=== PATIENT | female | born 1965 | race Hispanic/Latino ===

== ENCOUNTER 2021-11-25 05:30 | Observation (INO) | payer BC ==
[2021-11-16 11:21] LABS: BASOPHILS % (AUTO) 0.7 % (0.0-5.0); EOSINOPHILS % (AUTO) 3.4 % (0.0-8.0); HEMATOCRIT 45.3 % (36-48); LYMPHOCYTES % (AUTO) 31.1 % (21.0-51.0); MEAN CORPUSCULAR HEMOGLOBIN 30.9 pg (27.0-33.0); MEAN CORPUSCULAR HGB CONC 32.9 g/dL (32.0-36.0); MONOCYTES % (AUTO) 7.1 % (3.0-13.0); NEUTROPHILS % (AUTO) 57.4 % (40.0-77.0); PLATELET COUNT (AUTO) 295 K/uL (130-400); RED BLOOD CELL COUNT(AUTO) 4.82 MIL/uL (4.00-5.50); RED CELL DISTRIBUTION WIDTH 11.9 % (11.0-15.5)
[2021-11-16 11:29] LABS: POTASSIUM 4.4 mmol/L (3.5-5.1)
[2021-11-24] MEDS: CEFAZOLIN SODIUM 3 GM VIAL IV SCH (06:50)
[2021-11-24 11:45] VITALS: BP 149/88
[2021-11-25] VITALS (22 sets, daily range): BP systolic 99–141; BP diastolic 51–79
[~2021-11-25] VITALS: Ht 165.1 cm; Wt 115.2 kg
[~2021-11-25 05:30] MED LIST: ATOR20TA65 PO; DULA1.5P SQ; METO50TA18 PO; RAMI2.5C55 PO; [UNRECOGNIZED DRUG - OTHER] PO
[2021-11-25] MEDS ORDERED: CEFAZOLIN SODIUM 1 GM VIAL ONE ×3 (06:33→17:26)
[2021-11-25] MEDS ORDERED: 0.9%NACL 1000ML 1,000 ML IV ONE (06:33)
[2021-11-25] MEDS ORDERED: BUPIVACAINE/EPI/PF 0.25% 30ML VIAL IJ ONE (06:48)
[2021-11-25] MEDS ORDERED: THROMBIN-JMI 20000 UNIT KIT TP ONE (06:49)
[2021-11-25] MEDS ORDERED: MORPHINE PF 100MG/10ML AMP IV ONE (06:49)
[2021-11-25] MEDS ORDERED: PROPOFOL 10 MG/ML 20ML VIAL IV ONE (07:22)
[2021-11-25] MEDS ORDERED: MIDAZOLAM HCL 1 MG/ML 2ML VIAL ONE (07:22)
[2021-11-25] MEDS ORDERED: FENTANYL CITRATE PF 50 MCG/1 ML 2ML VIAL ONE (07:22)
[2021-11-25] MEDS ORDERED: LIDOCAINE PF 100MG/5ML (2%) SYRINGE 5ML ONE (07:22)
[2021-11-25] MEDS ORDERED: SUCCINYLCHOLINE CHLORIDE 20 MG/ML 10 ML VIAL ONE (07:22)
[2021-11-25] MEDS ORDERED: DEXAMETHASONE SOD PHOSPHATE 10MG/ML 1ML VIAL ONE (07:23)
[2021-11-25] MEDS ORDERED: ROCURONIUM 10MG/1ML SYR 10 MG/ML ML ONE (07:23)
[2021-11-25] MEDS ORDERED: EPHEDRINE SULFATE 50 MG/ML AMPULE ONE (07:44)
[2021-11-25] MEDS ORDERED: ARTIFICIAL TEARS 3.5 GM OINTMENT ONE (08:00)
[2021-11-25] MEDS: CEFAZOLIN SODIUM 3 GM VIAL IV SCH (08:00)
[2021-11-25] MEDS ORDERED: PHENYLEPHRINE HCL 10 MG/ML 1ML VIAL IV ONE (08:08)
[2021-11-25] MEDS ORDERED: GLYCOPYRROLATE 1 MG/5 ML SYRINGE ONE (10:04)
[2021-11-25] MEDS ORDERED: NEOSTIGMINE 5MG/5ML SYR IV ONE (10:04)
[2021-11-25] MEDS ORDERED: ONDANSETRON 4MG INJ ONE (10:04)
[2021-11-25] MEDS ORDERED: MORPHINE 2 MG SYG IVP PRN (10:30)
[2021-11-25] MEDS ORDERED: 0.9%NACL 10ML VIAL IVP PRN (10:30)
[2021-11-25] MEDS ORDERED: HYDROCODONE/ACETAMINOPHEN 5/325 MG TAB PO PRN (10:30)
[2021-11-25] MEDS ORDERED: PROMETHAZINE HCL 25 MG/ML 1ML AMPULE IM PRN (10:30)
[2021-11-25] MEDS ORDERED: CEFAZOLIN SODIUM 100 GM IV SCH (10:30)
[2021-11-25] MEDS: DEXAMETHASONE SOD PHOSPHATE 4 MG/ML 1ML VIAL IVP SCH ×3 (10:30→21:44)
[2021-11-25] MEDS ORDERED: MEPERIDINE-PF 25 MG/ML SYG ONE ×2 (10:51→11:16)
[2021-11-25] MEDS ORDERED: CEFAZOLIN SODIUM 3 GM VIAL IV SCH (11:00)
[2021-11-25] MEDS: LACTATED RINGERS 1000ML 1,000 ML IV SCH ×2 (17:17→23:50)
[2021-11-26 00:20] VITALS: BP 106/65
[2021-11-26] MEDS: DEXAMETHASONE SOD PHOSPHATE 4 MG/ML 1ML VIAL IVP SCH (04:13)
[2021-11-26 04:28] VITALS: BP 113/63
[2021-11-26 08:00] VITALS: BP 132/68
[2021-11-26] MEDS ORDERED: ATORVASTATIN 20 MG TABLET PO SCH (09:00)
[2021-11-26] MEDS ORDERED: [UNRECOGNIZED DRUG - OTHER] PO SCH (09:00)
[2021-11-26] MEDS ORDERED: METOPROLOL TARTRATE 50 MG TAB PO SCH (09:00)
[2021-11-26] MEDS ORDERED: LISINOPRIL 10 MG TABLET PO SCH (09:00)
[2021-12-02] MEDS ORDERED: **HM**TRULICITY 1.5MG SQ SCH (09:00)
== END 2021-11-26 10:48 | disposition home or self-care (01) ==
LOC: DAHIP 05:30 → 4AH 11:27
PROVIDERS: ADMIT Neurological Surgery; ATTEND Neurological Surgery
DX: M48.061 Spinal stenosis, lumbar region without neurogenic claudication (principal); Z20.822 Contact with and (suspected) exposure to COVID-19; M51.16 Intervertebral disc disorders with radiculopathy, lumbar region; I10 Essential (primary) hypertension; E11.9 Type 2 diabetes mellitus without complications; E66.9 Obesity, unspecified; Z79.899 Other long term (current) drug therapy
CPT/HCPCS: 36415; 63030; 63047; 71045; 72020; 80051; 82948 ×2; 85025; 87635; 93005; 96374; 96376 ×2; A4215; A4216; A4221; A4222; A4223 ×2; A4344; A4510; A4600; A4649 ×3; A4663; A6260; G0378 ×23; G0379; J0330; J0690 ×3; J1100 ×5; J2001; J2175 ×2; J2250; J2274; J2370; J2405; J2704; J2710; J3010; J3490 ×3; J7030 ×2; J7120 ×3

== ENCOUNTER 2022-04-20 05:30 | Observation (INO) | payer BC ==
[2022-04-19 11:54] LABS: BASOPHILS % (AUTO) 0.4 % (0.0-5.0); EOSINOPHILS % (AUTO) 4.5 % (0.0-8.0); HEMATOCRIT 45.4 % (36-48); LYMPHOCYTES % (AUTO) 18.6 % (21.0-51.0); MEAN CORPUSCULAR HEMOGLOBIN 30.3 pg (27.0-33.0); MEAN CORPUSCULAR HGB CONC 32.8 g/dL (32.0-36.0); MEAN CORPUSCULAR VOLUME 92.5 fL (79-99); MONOCYTES % (AUTO) 7.5 % (3.0-13.0); NEUTROPHILS % (AUTO) 68.7 % (40.0-77.0); PLATELET COUNT (AUTO) 260 K/uL (130-400); RED BLOOD CELL COUNT(AUTO) 4.91 MIL/uL (4.00-5.50); RED CELL DISTRIBUTION WIDTH 12.1 % (11.0-15.5)
[2022-04-19 11:58] LABS: APPEARANCE,URINE Clear (CLEAR); BILIRUBIN,URINE Negative (NEGATIVE); COLOR,URINE Yellow (YELLOW); GLUCOSE, URINE (UA) Negative (NEGATIVE); KETONES,URINE Negative (NEGATIVE); LEUKOCYTE ESTERASE ,URINE Small (NEGATIVE); NITRATE,URINE Negative (NEGATIVE); OCCULT BLOOD,URINE Negative (NEGATIVE); PH,URINE 6.5 (5.0-8.0); PROTEIN,URINE Negative (NEGATIVE); UROBILINOGEN,URINE 0.2 mg/dL (0.2-1.0)
[2022-04-19 12:06] LABS: BACTERIA,URINE Rare /HPF (None Seen); RBC,URINE 0-1 /HPF (0-1); SQUAMOUS EPITHELIAL CELL,UR Rare /HPF (0-2); WBC,URINE 0-1 /HPF (0-1)
[2022-04-20] VITALS (22 sets, daily range): BP systolic 116–155; BP diastolic 47–88
[~2022-04-20] VITALS: Ht 165.1 cm; Wt 116.1 kg
[~2022-04-20 05:30] MED LIST changes: -[UNRECOGNIZED DRUG - OTHER] PO
[2022-04-20] MEDS ORDERED: CEFAZOLIN SODIUM 1 GM VIAL ONE (07:15)
[2022-04-20] MEDS ORDERED: 0.9%NACL 1000ML 1,000 ML IV ONE (07:15)
[2022-04-20] MEDS ORDERED: FAMOTIDINE 20MG VIAL IV ONE (09:08)
[2022-04-20] MEDS ORDERED: HYDROMORPHONE 1 MG INJ ONE (09:09)
[2022-04-20] MEDS ORDERED: GLYCOPYRROLATE 1 MG/5 ML SYRINGE ONE (09:12)
[2022-04-20] MEDS ORDERED: ROCURONIUM 10MG/1ML SYR 10 MG/ML ML ONE (09:12)
[2022-04-20] MEDS ORDERED: PROPOFOL 10 MG/ML 20ML VIAL IV ONE (09:12)
[2022-04-20] MEDS ORDERED: NEOSTIGMINE 5MG/5ML SYR IV ONE (09:12)
[2022-04-20] MEDS ORDERED: FENTANYL CITRATE PF 50 MCG/1 ML 5ML AMP IV ONE (09:13)
[2022-04-20] MEDS ORDERED: CEFAZOLIN SODIUM 3 GM VIAL IV ONE (09:30)
[2022-04-20] MEDS ORDERED: ONDANSETRON 4MG INJ ONE (09:45)
[2022-04-20] MEDS ORDERED: MEPERIDINE-PF 25 MG/ML SYG ONE ×2 (11:44→11:52)
[2022-04-20] MEDS ORDERED: ACETAMINOPHEN WITH CODEINE 1 TAB TAB PO PRN (14:30)
[2022-04-20] MEDS ORDERED: MEPERIDINE-PF 75 MG/ML SYG IM PRN (14:30)
[2022-04-20] MEDS ORDERED: PROMETHAZINE HCL 25 MG/ML 1ML AMPULE IM PRN ×2 (14:30)
[2022-04-20] MEDS ORDERED: ONDANSETRON 4MG INJ IVP PRN (14:30)
[2022-04-20] MEDS ORDERED: BISACODYL 10 MG SUPP.RECT RC PRN (14:30)
[2022-04-20] MEDS: LACTATED RINGERS 1000ML 1,000 ML IV SCH ×2 (14:35→21:48)
[2022-04-20] MEDS: INSULIN HUMULIN R 100 UNIT/ML 3ML SQ SCH ×2 (16:30→21:00)
[2022-04-20] MEDS: DOCUSATE SODIUM 100 MG CAP PO PRN (21:42)
[2022-04-20] MEDS: SIMETHICONE 80 MG TAB.CHEW PO PRN (21:42)
[2022-04-20] MEDS: IBUPROFEN 600 MG TABLET PO PRN (23:28)
[2022-04-21 03:25] VITALS: BP 114/58
[2022-04-21 05:32] LABS: HEMATOCRIT 41.8 % (36-48); MEAN CORPUSCULAR HEMOGLOBIN 30.1 pg (27.0-33.0); MEAN CORPUSCULAR VOLUME 91.3 fL (79-99); RED BLOOD CELL COUNT(AUTO) 4.58 MIL/uL (4.00-5.50); WHITE BLOOD COUNT (AUTO) 8.9 K/uL (4.8-10.8)
[2022-04-21] MEDS: LACTATED RINGERS 1000ML 1,000 ML IV SCH (06:35)
[2022-04-21] MEDS: INSULIN HUMULIN R 100 UNIT/ML 3ML SQ SCH ×2 (07:30→11:30)
[2022-04-21] MEDS: DOCUSATE SODIUM 100 MG CAP PO PRN (08:53)
[2022-04-21] MEDS: SIMETHICONE 80 MG TAB.CHEW PO PRN (08:53)
[2022-04-21] MEDS: IBUPROFEN 600 MG TABLET PO PRN (08:55)
[2022-04-21 11:35] VITALS: BP 96/54
== END 2022-04-21 13:00 | disposition home or self-care (01) ==
LOC: DAH 05:30 → WSH 05:31
PROVIDERS: ADMIT Obstetrics & Gynecology; ATTEND Obstetrics & Gynecology
DX: N83.202 Unspecified ovarian cyst, left side (principal); Z20.822 Contact with and (suspected) exposure to COVID-19; N83.201 Unspecified ovarian cyst, right side; E66.01 Morbid (severe) obesity due to excess calories; I10 Essential (primary) hypertension; E11.9 Type 2 diabetes mellitus without complications; Z79.899 Other long term (current) drug therapy
CPT/HCPCS: 36415 ×2; 58552; 81001; 82948 ×5; 85025; 85027; 85730; 86850; 86900; 86901; 87635; 96372; 96374; A4213; A4215 ×2; A4221; A4222; A4223; A4344; A4600; A4649 ×2; A4663; C1769 ×2; C9803; G0378 ×5; J0690 ×2; J1170; J2175 ×3; J2405; J2550; J2704; J2710; J3010; J3490 ×2; J7030 ×2; J7120 ×2